=== PATIENT | female | born 1985 | race Caucasian/White ===

== ENCOUNTER 2019-02-19 20:23 | Emergency (ER) | payer BC ==
[~2019-02-19] VITALS: Ht 165.1 cm; Wt 72.6 kg
[~2019-02-19 20:23] MED LIST: AMOX-423 PO; HYDR-1189 PO
[2019-02-19 20:30] VITALS: BP_SYST 153
[2019-02-19] MEDS ORDERED: CEPHALEXIN 500 MG CAPSULE PO ONE (21:15)
[2019-02-19] MEDS ORDERED: cefTRIAXone 1 GM VIAL IM ONE (21:30)
[2019-02-19] MEDS ORDERED: DIPH-TET-PERTUS Vaccine 0.5 ML VIAL (ADACEL) I.M. ONE (21:30)
[2019-02-19] MEDS ORDERED: LIDOCAINE 1% 10 MG/ML, 20 ML MDV INJ ONE (21:30)
[2019-02-19 21:50] VITALS: BP_SYST 142
== END 2019-02-19 21:50 | disposition home or self-care (01) ==
LOC: SED 20:23
DX: S80.861A Insect bite (nonvenomous), right lower leg, initial encounter (principal); L03.115 Cellulitis of right lower limb; Z79.899 Other long term (current) drug therapy; W57.XXXA Bitten or stung by nonvenomous insect and other nonvenomous arthropods, initial encounter; Y93.89 Activity, other specified; Y92.89 Other specified places as the place of occurrence of the external cause; Y99.8 Other external cause status
CPT/HCPCS: 90471; 90715; 96372; 99283; J0696; J2001

== ENCOUNTER 2021-04-10 19:12 | Emergency (ER) | payer BC ==
[~2021-04-10] VITALS: Ht 165.1 cm; Wt 77.1 kg
[~2021-04-10 19:12] MED LIST changes: -HYDR-1189 PO; +HYDR-3919 PO
[2021-04-10 19:30] VITALS: BP_SYST 149
--- NOTE | 2021-04-10 19:36 | NUR ---
Patient to ER bed 3 to gown for evaluation. Side rails up.
[2021-04-10] MEDS ORDERED: METOCLOPRAMIDE HCL 10 MG TABLET PO ONE (20:30)
[2021-04-10] MEDS ORDERED: ACETAMINOPHEN 325 MG TABLET PO ONE (20:30)
--- NOTE | 2021-04-10 20:50 | NUR ---
MD Dr. Hernandez went in to see patient.
[2021-04-10 20:58] LABS: BASOPHILS % (AUTO) 0.3 % (0.0-2.0); EOSINOPHILS % (AUTO) 0.1 % (0.0-4.0); HEMATOCRIT 39.2 % (36-48); HEMOGLOBIN 13.4 g/dL (12.0-16.0); LYMPHOCYTES # (AUTO) 1.2 K/uL (1.0-5.5); LYMPHOCYTES % (AUTO) 12.5 % (20.5-51.5); MEAN CORPUSCULAR HEMOGLOBIN 31 pg (27-31); MEAN CORPUSCULAR HGB CONC 34 % (32-36); MEAN CORPUSCULAR VOLUME 89 fL (79.0-98.0); MONOCYTES # (AUTO) 0.7 K/uL (0.0-1.0); MONOCYTES % (AUTO) 7.1 % (1.7-9.3); NEUTROPHILS # (AUTO) 7.7 K/uL (1.8-7.7); PLATELET COUNT (AUTO) 280 K/uL (130-430); RED BLOOD CELL COUNT(AUTO) 4.38 MIL/uL (4.2-6.2); WHITE BLOOD COUNT (AUTO) 9.6 K/uL (4.8-10.8)
--- NOTE | 2021-04-10 21:00 | NUR ---
patient went to CT scan
--- NOTE | 2021-04-10 21:05 | NUR ---
EKG done on patient. waiting on MD to read the strip.
[2021-04-10 21:26] LABS: ANION GAP 11 (5-15); CALCIUM 8.3 mg/dL (8.4-11.0); CHLORIDE 101 mmol/L (98-107); CREATININE 0.92 mg/dL (0.55-1.30); GLUCOSE 95 mg/dL (70-99); POTASSIUM 4.2 mmol/L (3.5-5.1); SODIUM SERUM 140 mmol/L (136-145); UREA NITROGEN, BLOOD 9 mg/dL (8-21)
[2021-04-10 21:35] LABS: ALANINE AMINOTRANSFERASE 26 U/L (12-78); ALBUMIN 3.6 g/dL (3.4-4.8); ASPARTATE AMINOTRANSFERASE 24 U/L (10-37); TOTAL BILIRUBIN 0.8 mg/dL (0.0-1.0)
[2021-04-10 21:49] LABS: GFR AFRICAN AMERICAN 88 mL/min (>90)
[2021-04-10 22:04] VITALS: BP_SYST 149
--- NOTE | 2021-04-10 22:05 | NUR ---
Patient given written and verbal discharge instructions and verbalizes understanding. ER MD discussed with patient the results and treatment provided. Patient in stable condition. ID arm band removed. IV catheter removed intact and dressing applied, no active bleeding. Patient educated on pain management and to follow up with PMD. Opportunity for questions provided and answered. Medication side effect fact sheet provided.
== END 2021-04-10 22:04 | disposition home or self-care (01) ==
LOC: SED 19:12
DX: S09.90XA Unspecified injury of head, initial encounter (principal); R55 Syncope and collapse; Z79.899 Other long term (current) drug therapy; W18.39XA Other fall on same level, initial encounter; Y93.89 Activity, other specified; Y92.89 Other specified places as the place of occurrence of the external cause; Y99.8 Other external cause status
CPT/HCPCS: 36415; 70450-TC; 76376; 80053; 84484; 85025; 93005; 99285; J8597

== ENCOUNTER 2021-06-01 19:15 | Emergency (ER) | payer BC, SELFPAY ==
[~2021-06-01] VITALS: Ht 165.1 cm; Wt 79.4 kg
[2021-06-01 19:48] VITALS: BP_SYST 138
--- NOTE | 2021-06-01 19:48 | NUR ---
ER at bedside examining patient.
--- NOTE | 2021-06-01 19:48 | NUR ---
Patient to ER TENT for evaluation. Side rails up.
--- NOTE | 2021-06-01 19:52 | NUR ---
PATIENT BROUGHT IN FROM HOME AMBULATORY COMPLAINING OF SHORTNESS OF BREATH, SPEAKING FULL SENTENCES, O2 SATURATION AT 100%. PATIENT ALSO REPORTS COUGH AND CONGESTION X 2 WEEKS. NO OTHER COMPLAINTS/INJURIES PER PATIENT OR NOTED.
[2021-06-01] MEDS ORDERED: GUAI120L56 PO (20:54)
[2021-06-01] MEDS ORDERED: ALBMDI INH (20:54)
[2021-06-01] MEDS ORDERED: PRED20TA PO (20:54)
[2021-06-01] MEDS ORDERED: ZIT250 PO (20:54)
--- NOTE | 2021-06-01 20:59 | NUR ---
DR. CARIAS AT BEDSIDE DISCUSSING RESULTS
[2021-06-01 21:05] VITALS: BP_SYST 126
--- NOTE | 2021-06-01 21:05 | NUR ---
Patient given written and verbal discharge instructions and verbalizes understanding. ER MD discussed with patient the results and treatment provided. Patient in stable condition. ID arm band removed. Rx of VENTOLIN, CODEINE-GUAIFENESIN, PREDNISONE given. Patient educated on pain management and to follow up with PMD. Pain Scale 0/10 Opportunity for questions provided and answered. Medication side effect fact sheet provided.
== END 2021-06-01 21:05 | disposition home or self-care (01) ==
LOC: SED 19:15
DX: J40 Bronchitis, not specified as acute or chronic (principal); Z20.822 Contact with and (suspected) exposure to COVID-19; Z79.899 Other long term (current) drug therapy
CPT/HCPCS: 36415; 71045; 99284